=== PATIENT | male | born 1990 | race Caucasian/White ===

== ENCOUNTER 2018-09-14 13:25 | Emergency (ER) | payer OTHER ==
[~2018-09-14] VITALS: Ht 182.9 cm; Wt 64.4 kg
--- NOTE | 2018-09-14 13:34 | NUR ---
PT IS A/OX4, BIB RA37 FROM [facility] S/P RHINOPLASTY CHECK-UP. PER REPORT FROM THE SURGICAL CENTER'S MD AND NURSE STAFF, PT WAS AT THE OFFICE FOR A FOLLOW-UP TO HAVE THE NASAL PACKING REMOVED FOLLOWING RHINOPLASTY COUPLE OF DAYS AGO. STAFF REPORT THAT BREEZE NASAL BREEZE AIRWAY SPLINT, "GRUBER SPLINT", BECAME DISLODGED AND MOVED FURTHER INTO THE R NARE. THE GRUBER SPLINT COULD NOT BE REMOVED BY THE SURGICAL CENTER MD DESPITE USE OF FIBEROPTIC NASOPHARYNGEAL SCOPE. PT IS REQUESTING TO BE "PUT TO SLEEP" AND HAVE THE FOREIGN BODY OBJECT REMOVED. VSS.
[2018-09-14] MEDS ORDERED: CEPH-570 PO (13:45)
[2018-09-14] MEDS ORDERED: IBUP-1955 PO (13:45)
--- NOTE | 2018-09-14 13:47 | NUR ---
NO AIRWAY COMPROMISE. PT IS RESTING COMFORTABLY.
--- NOTE | 2018-09-14 13:56 | NUR ---
CRISTY ORDAZ SPEAKING W/ DR. ANT MATHUR, DENTAL EQUIPMENT REPAIRER, ON THE PHONE RE PT'S PLAN OF CARE.
--- NOTE | 2018-09-14 14:11 | NUR ---
Patient discharged in stable conditon. Written and verbal after care instructions given. Patient verbalizes understanding of instructions. PT HAS BEEN INSTRUCTED TO GO DIRECTLY TO DR. ANT MATHUR'S OFFICE FOR REMOVAL OF THE NASAL FOREIGN BODY. DR. ANT MATHUR IS AWARE OF PT'S CASE. TAXI VOUCHER PROVIDED, ETA 15 MIN.
[2018-09-14 14:12] VITALS: BP 151/46
== END 2018-09-14 14:28 | disposition home or self-care (01) ==
LOC: ER 13:25
DX: T17.1XXA Foreign body in nostril, initial encounter (principal); Z79.1 Long term (current) use of non-steroidal anti-inflammatories (NSAID); Z79.899 Other long term (current) drug therapy; X58.XXXA Exposure to other specified factors, initial encounter; Y93.89 Activity, other specified; Y92.89 Other specified places as the place of occurrence of the external cause; Y99.8 Other external cause status
CPT/HCPCS: A4663